=== PATIENT | male | born 1955 | race Caucasian/White ===

== ENCOUNTER 2023-11-04 22:02 | Emergency (ER) | payer MEDICARE, OTHER, SELFPAY ==
[2023-11-04 22:03] VITALS: BP 119/74
[2023-11-04 22:18] LABS: % Basophils 0.3 % (0-2); % Eosinophils 0.6 % (0-6); % Immature Granulocytes 0.4 % (0-0.5); % Lymphocytes 8.2 % (20.5-51.1); % Monocytes 7.9 % (1.7-9.3); % Neutrophils 82.6 % (42.2-75.2); Absolute Basophils 0.1 10^3/uL (0-0.2); Absolute Eosinophils 0.1 10^3/uL (0-0.7); Absolute Immature Granulocytes 0.1 10^3/uL (0-0.05); Absolute Lymphocytes 1.3 10^3/uL (1.2-3.4); Absolute Monocytes 1.3 10^3/uL (0.1-0.6); Absolute Neutrophils 13.1 10^3/uL (1.4-6.5); Hematocrit 45.3 % (39.0-52.0); Hemoglobin 15.8 g/dL (13.0-18.0); Mean Corp Hgb Conc. 34.9 g/dL (33.0-37.0); Mean Corpuscular Hgb 33.8 pg (27.0-31.0); Mean Platelet Volume 9.8 fL (7.4-10.4); Nucleated Red Blood Cells % 0 % (-); Platelet Count 204 10^3/uL (130-400); Red Blood Cell Count 4.67 10^6/uL (4.70-6.10); Red Cell Dist. Width 13.4 % (11.5-14.5); White Blood Cell Count 15.9 10^3/uL (4.8-10.8)
[2023-11-04 22:41] VITALS: BMI 21.8
[2023-11-04 22:41] LABS: ALT (SGPT) 19 U/L (0-50); AST (SGOT) 33 U/L (17-59); Albumin 4.2 g/dl (3.5-5.0); Alkaline Phosphatase 91 U/L (38-126); Blood Urea Nitrogen 28 mg/dl (9-20); Calcium 9.5 mg/dl (8.4-10.2); Carbon Dioxide 25 mmol/L (22-30); Chloride 102 mmol/L (98-107); Glucose 129 mg/dl (70-99); Potassium 4.6 mmol/L (3.5-5.1); Sodium 135 mmol/L (135-145); Total Bilirubin 0.9 mg/dl (0.2-1.3); Total Protein 7.3 g/dl (6.3-8.2); eGFR 59.84
--- NOTE | 2023-11-04 22:57 | ED.GENMED ---
History of Present Illness
General
Chief Complaint: Rectal Bleeding
Source: patient and spouse
Time Seen by Provider: 11/04/23 22:46
Travel History
Have you had any contact with someone who has COVID-19?: No
Do you have any symptoms of coronavirus? Fever > 100 degrees, chills, cough, shortness of breath, sore throat, loss of taste or smell, muscle aches, or headache?: No
History of Present Illness
History of Present Illness:
68-year-old male presents to the emergency room complaining of developing voluminous diarrhea this afternoon around noon. Patient had multiple episodes and difficulty making it to the bathroom in time. For me he denies any blood in his stool. He
then episodes of vomiting. He describes the vomitus as dark or black. He has not had diarrhea now for the past couple hours. Patient has a history of multiple abdominal operations and has had bowel obstructions in the past which is what has
prompted his visit. Denies any fever. Patient did recently returned home from [facility]. Patient has a daughter who lives there and they traveled there frequently. They consume well water which they boil prior to consumption.
Past History
Past History
ED Past Medical History: Other (Bowel obstructions, spinal stenosis, GERD, pneumonia, prostatic hypertrophy, testicular cancer, urinary tract infections, Hodgkin's lymphoma, splenectomy, anemia)
ED Past Surgical History: Other (Splenectomy)
Social History
Tobacco: Non-smoker
Alcohol: None
Drug: None
Personal:
Living: with family
Phy Exam
Physical Exam
Physical Exam:
General: Awake, Alert, Oriented X3. No acute distress.
Vitals: unremarkable
Head: Atraumatic
Eyes: Pupils equal, EOMI
Throat: Airway intact, no exudates, dry mucous
Neck: Trachea midline
Lungs: Clear and equal b/l
Heart: Regular rate, no murmurs
Abd: Soft, Nontender, No pulsatile mass
Rectal:
Neuro: Nonfocal
Skin: Warm, dry, no rash
Extremities: pulses equal b/l, no edema
Course
Orders/Labs/Results
Orders:
Orders
11/04/23 22:14
CMP [Comprehensive Metabolic Panel] Urgent
Complete Blood Count/With Diff Urgent
11/04/23 22:58
Ova & Parasites Giardia/Crypto AG [Giardia/Cryptosporidium Ag] Urgent
BAILEE Source: Feces/Stool
Specimen Description:
Stool Culture Urgent
BAILEE Source: Feces/Stool
Specimen Description:
0.9% Sodium Chloride 1000 ml [Nss] 1,000 ml IV BOLUS
Ondansetron Injectable [Zofran] 4 mg IV NOW STA
11/04/23 23:00
Iohexol [Omnipaque] See Protocol PO NOW STA
11/05/23 01:20
CT Abd/pel W Iv And Oral Contr Urgent
Reason For Exam: abd pain, nausea, vomiting
Abnormal Lab Results
11/04/23
22:14
WBC 15.9 H 10^3/uL
(4.8-10.8)
RBC 4.67 L 10^6/uL
(4.70-6.10)
MCV 97.0 H fL
(80.0-94.0)
MCH 33.8 H pg
(27.0-31.0)
Abs Immat Gran (auto) 0.1 H 10^3/uL
(0-0.05)
Absolute Neuts (auto) 13.1 H 10^3/uL
(1.4-6.5)
Absolute Monos (auto) 1.3 H 10^3/uL
(0.1-0.6)
Neutrophils % 82.6 H %
(42.2-75.2)
Lymphocytes % 8.2 L %
(20.5-51.1)
BUN 28 H mg/dl
(9-20)
Glucose 129 H mg/dl
(70-99)
11/04/23 22:14
11/04/23 22:14
Vital Signs
Initial and Last Documented VS:
Initial Vital Signs
Temp Pulse Resp BP Pulse Ox
98.3 F 70 22 119/74 95
11/04/23 22:03 11/04/23 22:03 11/04/23 22:03 11/04/23 22:03 11/04/23 22:03
Last Documented Vital Signs
Temp Pulse Resp BP Pulse Ox
98.8 F 80 18 110/59 92
11/05/23 01:59 11/05/23 02:30 11/05/23 02:30 11/05/23 02:00 11/04/23 23:16
MDM/Problems Addressed
Differential Diagnosis Includes:
Gastroenteritis, ileus, small bowel obstruction, colitis
MDM/Problems Addressed:
Patient presents with nausea vomiting diarrhea. He has a history of bowel obstructions. Some tenderness to palpation. Labs show a elevated white blood cell count of 15.9. Rest of the labs show a mild prerenal azotemia with a BUN of 28 and
creatinine of 1.3. Overall symptoms are consistent with a viral gastroenteritis and mild dehydration. CT shows findings of ileus versus small bowel obstruction. The overall presentation seems much more consistent with an ileus. I do not think
the patient has a bowel obstruction. CT also noted bilateral lower lung changes suggestive of aspiration. However the patient is not hypoxic, is not coughing and really does not have any signs or symptoms to suggest aspiration. Given the
patient's recent travel to [facility] I gave consideration to. However patient was unable to pass any stool here in the emergency room.
*Critical Care Note
Total Time (30-74mins, 75-104mins- exclusive of procedures): Not Applicable
ED Attending Note
-
Portions of this chart may have been created with voice recognition software.� Occasional wrong word or��sound alike� substitutions may have occurred due to the inherent limitations of voice recognition software.
Discharge Plan
Departure
Patient Disposition: Home (Routine Discharge)
Date of Disposition: 11/05/23
Time of Disposition: 02:55
Patient with high blood pressure during this ER visit?: No
Discharge Problem:
Gastroenteritis, Ileus
Instructions: Viral Gastroenteritis, Adult (DC), Abdominal Pain
Prescriptions:
New
ondansetron 4 mg tablet,disintegrating
4 mg PO Q8H PRN (Reason: nausea and vomiting) Qty: 10 0RF
No Action
latanoprost 0.005 % Drops
1 drp BOTH EYES QPM
dorzolamide-timolol 22.3-6.8 mg/mL Drops
1 drp BOTH EYES BID
Referrals:
Endy Castanon MD [Family Provider] -
Activity Restrictions/Additional Instructions:
Your CAT scan shows that your small intestines are not moving as much is normal which is what we call ileus. Clinically I do not believe you have a bowel obstruction. However if you develop worsening abdominal pain, vomiting please return for
reevaluation.
Interventions
Interventions:
*Risk Screen - Suicide Last Done: 11/04/23 22:03
*General Assessment Last Done: 11/04/23 22:41
*Neglect/Abuse Screening Last Done: 11/04/23 22:03
RQ-Brzsjk-Ndhhtokwhw Assessment Last Done: 11/04/23 22:41
ED- Cardiac Assessment Last Done: 11/05/23 02:05
ED- Pulmonary Assessment Last Done: 11/04/23 22:41
[2023-11-04 23:16] VITALS: BP 89/74
[2023-11-04] MEDS: NSS 1000 IV (23:20)
[2023-11-04] MEDS: OMNIPAQUE 50 ML PO (23:21)
[2023-11-04] MEDS: ZOFRAN 4 MG IV (23:21)
[2023-11-05] VITALS: BP 108/75
[2023-11-05 01:45] VITALS: BP 104/63
[2023-11-05 02:00] VITALS: BP 110/59
[2023-11-05 02:57] VITALS: BP 97/67
== END 2023-11-05 03:10 | disposition home or self-care (01) ==
LOC: EMR 22:02
PROVIDERS: Emergency Medicine; EMERGENCY PHYSICIAN Emergency Medicine; FAMILY PHYSICIAN Family Medicine
DX: K52.9 Noninfective gastroenteritis and colitis, unspecified (principal); K56.7 Ileus, unspecified; R19.7 Diarrhea, unspecified; K21.9 Gastro-esophageal reflux disease without esophagitis; N40.0 Benign prostatic hyperplasia without lower urinary tract symptoms; Z85.47 Personal history of malignant neoplasm of testis; Z85.71 Personal history of Hodgkin lymphoma; Z87.440 Personal history of urinary (tract) infections; Z90.81 Acquired absence of spleen
CPT/HCPCS: 99284; 96374; 96361; 74177; 80053; 85025; Q9967